=== PATIENT | female | born 1995 | race Caucasian/White ===

== ENCOUNTER 2017-07-19 10:03 | Emergency (ER) | payer OTHER ==
[~2017-07-19] VITALS: Ht 162.6 cm; Wt 70.8 kg
[2017-07-19] MEDS ORDERED: CIPRO250 MG PO (11:27)
== END 2017-07-19 11:38 | disposition home or self-care (01) ==
LOC: ED 10:03
DX: N39.0 Urinary tract infection, site not specified (principal)
CPT/HCPCS: 76705; 80053; 81001; 82150; 83690; 84703; 85025; 96361; 96374; 96375; 99284; J1170; J2405; J7030